=== PATIENT | male | born 1935 | race Caucasian/White ===

== ENCOUNTER 2018-08-14 20:07 | Inpatient (IN) | payer OTHER ==
[~2018-08-14] VITALS: Ht 188 cm; Wt 97.7 kg
--- NOTE | ~2018-08-14 | MORECARE ---
CASE MANAGEMENT DISCHARGE SUMMARY PATIENT: KELSEY CABEZAS UNIT: [id number] ADM DATE: 08/14/18 AGE: 83 : 34 SEX: M ROOM/BED: D.2239 AUTHOR: DALI YOUSIF PHYSICIAN: REFERRING PHYSICIAN: RAJEEV GOMEZ MD DATE OF SERVICE: 08/16/18 Discharge Plan Patient Name: KELSEY CABEZAS Facility: [facility]:[place] : 1935 Planned Disposition: Anticipated Discharge Date: Discharge Date: Expected LOS: Initial Reviewer: [email or web address] Initial Review Date: 08/16/2018 Generated: 08/16/18 11:52 am Patient Name: KELSEY CABEZAS Page 53810 at 1052 All edits/amendments must be made on the electronic document DICTATION DATE: 08/16/18 1051 KETTLE WORKER: ZENY 08/16/18 1051 RPT#: [id number] DC DATE: STATUS: ADM IN [facility] [address] [place] [address] END OF REPORT
--- NOTE | ~2018-08-14 | MORECARE ---
CASE MANAGEMENT DISCHARGE SUMMARY PATIENT: KELSEY CABEZAS UNIT: [id number] ADM DATE: 08/14/18 AGE: 83 : 34 SEX: M ROOM/BED: D.2239 AUTHOR: DALI YOUSIF PHYSICIAN: REFERRING PHYSICIAN: RAJEEV GOMEZ MD DATE OF SERVICE: 08/18/18 Discharge Plan Patient Name: KELSEY CABEZAS Facility: [facility]:[place] : 1935 Planned Disposition: Home with Hospice Anticipated Discharge Date: Discharge Date: Expected LOS: Initial Reviewer: [email or web address] Initial Review Date: 08/16/2018 Generated: 08/18/18 4:17 pm Last DP export: 08/16/18 9:52 Patient Name: KELSEY CABEZAS Page 01104 at 1518 All edits/amendments must be made on the electronic document DICTATION DATE: 08/18/181516 SOCIAL CONTACT WORKER: ZENY 08/18/181516 RPT#: [id number] DC DATE: STATUS: ADM IN [facility] [address] [place] [address] END OF REPORT
--- NOTE | ~2018-08-14 | MORECARE ---
CASE MANAGEMENT DISCHARGE SUMMARY PATIENT: KELSEY CABEZAS UNIT: [id number] ADM DATE: 08/14/18 AGE: 83 : 34 SEX: M ROOM/BED: D.2239 AUTHOR: DALI YOUSIF PHYSICIAN: REFERRING PHYSICIAN: RAJEEV GOMEZ MD DATE OF SERVICE: 08/26/18 Discharge Plan Patient Name: KELSEY CABEZAS Facility: [facility]:[place] : 1935 Planned Disposition: Home with Hospice Anticipated Discharge Date: Discharge Date: 08/26/2018 Expected LOS: Initial Reviewer: [email or web address] Initial Review Date: 08/16/2018 Generated: 08/26/18 5:18 pm Comments DCP- Discharge Planning Updated by [email or web address]: Effie Duarte on 08/26/18 3:[address] LATE ENTRY 1200 PATIENT TO BE DISCHARGED TO HOME TODAY WITH [facility]. THE FAMILY IS AT THE BEDSIDE. NO HOSPICE NURSE NOTES FOUND IN HARD COPY CHART. TC TO [facility]. CM RECEIVED CB TELEPHONE CALL FROM ZIGZ[employer] MACHINE OPERATOR NURSE, ARY. SHE STATED THE PATIENT COULD BE SENT TO HOME AND WOULDD BE SEEN BY NURSE. CM WITH QUESTION REGARDING IF ALL NECESSARY DME IN PLACE. CM HAD COMPLETED PCS FORM AND ATTACHED FACE SHEET FOR AMBULANCE TRANSPORT. REC CB FROM [facility] NON MORSE INTERCEPT TECHNICIAN. PATIENT IS KNOWN TO SERVICE. RAMANDE[facility] IS PREPARED FOR DISCHARGE TO HOME TODAY. CM RECEIVED CB FROM TAHIR THAT [facility] HAD MADE AMBUALNCE TRANSPORT ARRANGEMENTS. MONA NOTIFIED PRIMARY NURSE THAT [facility] WAS PLANNING TO TRANSPORT THE PATIENT TO HOME WITHIN THE HOUR. Last DP export: 08/18/18 2:18 Patient Name: KELSEY CABEZAS Page 24048 at 1618 All edits/amendments must be made on the electronic document DICTATION DATE: 08/26/181616 QUALITY AUDIT REPRESENTATIVE: ZENY 08/26/181616 RPT#: [id number] DC DATE:08/26/18 STATUS: DIS IN [facility] [address] [place] [address] END OF REPORT
--- NOTE | ~2018-08-14 | MORECARE ---
CASE MANAGEMENT DISCHARGE SUMMARY PATIENT: KELSEY CABEZAS UNIT: [id number] ADM DATE: 08/14/18 AGE: 83 : 34 SEX: M ROOM/BED: D.2239 AUTHOR: DALI YOUSIF PHYSICIAN: REFERRING PHYSICIAN: RAJEEV GOMEZ MD DATE OF SERVICE: 08/28/18 Discharge Plan Patient Name: KELSEY CABEZAS Facility: [facility]:[place] : 1935 Planned Disposition: Home with Hospice Anticipated Discharge Date: Discharge Date: 08/26/2018 Expected LOS: 0 Initial Reviewer: [email or web address] Initial Review Date: 08/16/2018 Generated: 08/28/18 11:13 am Comments DCP- Discharge Planning Updated by [email or web address]: Effie Duarte on 08/26/18 3:[address] LATE ENTRY 1200 PATIENT TO BE DISCHARGED TO HOME TODAY WITH [facility]. THE FAMILY IS AT THE BEDSIDE. NO HOSPICE NURSE NOTES FOUND IN HARD COPY CHART. TC TO [facility]. CM RECEIVED CB TELEPHONE CALL FROM DENTAL TECHNICIAN APPRENTICE NURSE, ARY. SHE STATED THE PATIENT COULD BE SENT TO HOME AND WOULDD BE SEEN BY NURSE. CM WITH QUESTION REGARDING IF ALL NECESSARY DME IN PLACE. CM HAD COMPLETED PCS FORM AND ATTACHED FACE SHEET FOR AMBULANCE TRANSPORT. REC CB FROM [facility] ACCOUNT DEVELOPMENT SPECIALIST. PATIENT IS KNOWN TO SERVICE. RAMANDEEP IS PREPARED FOR DISCHARGE TO HOME TODAY. CM RECEIVED CB FROM TAHIR THAT [facility] HAD MADE AMBUALNCE TRANSPORT ARRANGEMENTS. CM NOTIFIED PRIMARY NURSE THAT [facility] WAS PLANNING TO TRANSPORT THE PATIENT TO HOME WITHIN THE HOUR. Last DP export: 08/26/18 3:18 Patient Name: KELSEY CABEZAS Page 23988 at 1013 All edits/amendments must be made on the electronic document DICTATION DATE: 08/28/18 1013 HAND BLOCKER: ZENY 08/28/18 1013 RPT#: [id number] DC DATE:08/26/18 STATUS: DIS IN [facility] [address] [place] [address] END OF REPORT
[2018-08-15 05:00] VITALS: BP 121/59
[2018-08-15 06:58] VITALS: BP 113/64; Ht 188 cm; Wt 97.7 kg
[2018-08-15] MEDS ORDERED: SEROQUEL25 MG PO (07:26)
[2018-08-15] MEDS ORDERED: LISINOPRIL10 MG PO (07:26)
[2018-08-15] MEDS ORDERED: ZOFRAN4 MG PO (07:27)
[2018-08-15] MEDS ORDERED: METHOTREXATE2.5 MG PO (07:27)
[2018-08-15] MEDS ORDERED: ATIVAN0.5 MG PO (07:28)
[2018-08-15] MEDS ORDERED: MORPHINE S10 MG/5 ML PO (07:30)
[2018-08-15 20:00] VITALS: BP 120/73
[2018-08-16 05:00] VITALS: BP 124/79
[2018-08-16 08:26] VITALS: BP 112/75
[2018-08-16 20:00] VITALS: BP 115/73
[2018-08-17 08:28] VITALS: BP 103/65
[2018-08-17 21:46] VITALS: BP 124/76
[2018-08-18 08:23] VITALS: BP 123/92
[2018-08-19 10:45] VITALS: BP 114/64
[2018-08-19 21:23] VITALS: BP 119/65
[2018-08-20 11:14] VITALS: BP 149/78
[2018-08-20 20:00] VITALS: BP 118/68
[2018-08-21 04:00] VITALS: BP 96/52
[2018-08-21 08:12] VITALS: BP 118/62
[2018-08-21 16:10] VITALS: BP 137/59
[2018-08-21 20:00] VITALS: BP 114/75
[2018-08-22 08:32] VITALS: BP 72/45
[2018-08-22 12:10] VITALS: BP 119/99
[2018-08-22 17:13] VITALS: BP 87/50
[2018-08-22 22:17] VITALS: BP 120/68
[2018-08-23 08:36] VITALS: BP 103/53
[2018-08-23 20:00] VITALS: BP 122/56
[2018-08-24] VITALS: BP 127/67
[2018-08-24 08:41] VITALS: BP 113/50
[2018-08-24 20:00] VITALS: BP 95/74
[2018-08-25 08:57] VITALS: BP 130/67
[2018-08-25 12:20] VITALS: BP 107/77
[2018-08-25 20:02] VITALS: BP 104/51
[2018-08-26 09:10] VITALS: BP 111/63
== END 2018-08-26 14:31 | disposition home health service (06) | DRG 951 ==
LOC: D.MS 20:07
DX: Z51.5 Encounter for palliative care (principal)